=== PATIENT | female | born 1960 | race Caucasian/White ===

== ENCOUNTER 2022-03-05 16:31 | Inpatient (IN) | payer MEDICARE ==
[~2022-03-05] VITALS: Ht 160 cm; Wt 96.2 kg
[2022-03-05] VITALS (15 sets, daily range): BP systolic 104–162; BP diastolic 48–84
[2022-03-05] MEDS ORDERED: ALBUTEROL SUL0.083 % IN (17:14)
[2022-03-05] MEDS ORDERED: ALLOPURINOL100 MG PO (17:16)
[2022-03-05] MEDS ORDERED: ATORVASTATIN CA40 MG PO (17:17)
[2022-03-05] MEDS ORDERED: ASPIRIN81 MG PO (17:17)
[2022-03-05] MEDS ORDERED: NORVASC2.5 M1 PO (17:17)
[2022-03-05] MEDS ORDERED: ROCALTROL0.5 MC1 PO (17:18)
[2022-03-05] MEDS ORDERED: CALCIUM ANTACI500 MG PO (17:19)
[2022-03-05] MEDS ORDERED: CYMBALTA20 MG PO (17:20)
[2022-03-05] MEDS ORDERED: ELIQUIS2.5 MG PO (17:21)
[2022-03-05] MEDS ORDERED: FERROUS SULF325 M3 PO (17:23)
[2022-03-05] MEDS ORDERED: GABAPENTIN100 MG PO (17:24)
[2022-03-05] MEDS ORDERED: IPRATROPIU0.5 MG/3 M IN (17:25)
[2022-03-05] MEDS ORDERED: LEVOTHYROXIN150 MCG PO (17:26)
[2022-03-05] MEDS ORDERED: METOPROL TAR25 MG PO (17:27)
[2022-03-05] MEDS ORDERED: MACROBID100 M1 PO (17:27)
[2022-03-05] MEDS ORDERED: NALOXONE (17:28)
[2022-03-05] MEDS ORDERED: PERCOCET1 TA4 PO (17:29)
[2022-03-05] MEDS ORDERED: PROTONIX40 M2 PO (17:30)
[2022-03-05 17:38] LABS: BASO% 0.2 % (0-3); EOS% 1.4 % (0-8); HEMATOCRIT 20.1 % (37.0-47.0); IMMATURE GRANULOCYTES 0.4 % (0.0-5.0); LYMPH% 10.5 % (15-41); MEAN CELL VOLUME 86.6 fL CALC (80.0-100.0); MEAN CORPUSCULAR HGB 25.9 pG CALC (26.0-32.0); MEAN CORPUSCULAR HGB CONC 29.9 g/dL CAL (32.0-36.0); MONO% 7.9 % (2-13); NEUT# 9.37 thou/uL (2.00-7.15); NEUT% 79.6 % (42-76); RED BLOOD COUNT 2.32 mill/uL (4.20-5.60); RED CELL DISTRI WIDTH 18.1 % (11.5-15.5)
[2022-03-05 17:53] LABS: ALBUMIN 3.7 g/dL (3.2-5.0); ALKALINE PHOSPHATASE 89 u/l (38-126); ANION GAP 9 (6-22 (CALC)); BILIRUBIN, TOTAL 0.4 mg/dL (0.0-1.4); BUN 19 mg/dL (8-23); BUN/CREATININE RATIO 14 (12-20 (CALC)); CARBON DIOXIDE 31 mmol/l (22-30); CHLORIDE 104 mmol/l (95-108); CREATININE 1.3 mg/dL (0.5-1.0); GFR FOR AFR.AMER. 50 ML/MIN (>=60 (CALC)); GFR OTHER RACES 42 ML/MIN (>=60 (CALC)); MAGNESIUM 1.3 mg/dL (1.6-2.3); POTASSIUM 3.3 mmol/l (3.5-5.1); SGOT/AST 18 u/l (9-36); SODIUM 140 mmol/l (137-146); TOTAL PROTEIN 6.4 g/dL (6.3-8.2)
[2022-03-06] VITALS (14 sets, daily range): BP systolic 146–205; BP diastolic 60–85
[2022-03-06 09:31] LABS: BASO% 0.1 % (0-3); EOS% 0.1 % (0-8); IMMATURE GRANULOCYTES 1.4 % (0.0-5.0); LYMPH% 3.9 % (15-41); MEAN CELL VOLUME 84.8 fL CALC (80.0-100.0); MEAN CORPUSCULAR HGB 26.7 pG CALC (26.0-32.0); MEAN CORPUSCULAR HGB CONC 31.5 g/dL CAL (32.0-36.0); MONO% 0.6 % (2-13); NEUT# 12.42 thou/uL (2.00-7.15); NEUT% 93.9 % (42-76); RED BLOOD COUNT 3.89 mill/uL (4.20-5.60); RED CELL DISTRI WIDTH 17.5 % (11.5-15.5)
[2022-03-06 09:39] LABS: HEMOGLOBIN 10.4 g/dl (12.0-16.0)
[2022-03-06 09:52] LABS: ALBUMIN 4.3 g/dL (3.2-5.0); CREATININE 1.2 mg/dL (0.5-1.0); MAGNESIUM 1.2 mg/dL (1.6-2.3); POTASSIUM 3.3 mmol/l (3.5-5.1); TOTAL PROTEIN 7.2 g/dL (6.3-8.2)
[2022-03-06 09:57] LABS: BILIRUBIN, TOTAL 0.6 mg/dL (0.0-1.4)
[2022-03-07 00:05] VITALS: BP 174/85
[2022-03-07 05:26] LABS: BASO% 0.1 % (0-3); HEMATOCRIT 31.7 % (37.0-47.0); HEMOGLOBIN 9.7 g/dl (12.0-16.0); IMMATURE GRANULOCYTES 1.3 % (0.0-5.0); LYMPH% 4.3 % (15-41); MEAN CELL VOLUME 87.1 fL CALC (80.0-100.0); MEAN CORPUSCULAR HGB 26.6 pG CALC (26.0-32.0); MEAN CORPUSCULAR HGB CONC 30.6 g/dL CAL (32.0-36.0); MONO% 2.4 % (2-13); NEUT# 10.19 thou/uL (2.00-7.15); NEUT% 91.9 % (42-76); RED BLOOD COUNT 3.64 mill/uL (4.20-5.60); RED CELL DISTRI WIDTH 18.3 % (11.5-15.5)
[2022-03-07 05:44] LABS: ALBUMIN 4.1 g/dL (3.2-5.0); BILIRUBIN, TOTAL 0.4 mg/dL (0.0-1.4); CREATININE 1.2 mg/dL (0.5-1.0); POTASSIUM 3.2 mmol/l (3.5-5.1); TOTAL PROTEIN 7.2 g/dL (6.3-8.2)
[2022-03-07 05:57] LABS: MAGNESIUM 1.9 mg/dL (1.6-2.3)
[2022-03-07 11:37] VITALS: BP 199/89
[2022-03-07 16:00] VITALS: BP 157/110
[2022-03-07 18:42] VITALS: BP 151/61
[2022-03-08] VITALS (11 sets, daily range): BP systolic 154–182; BP diastolic 55–84
[2022-03-08 04:37] LABS: BASO% 0.1 % (0-3); HEMATOCRIT 33.4 % (37.0-47.0); IMMATURE GRANULOCYTES 1.9 % (0.0-5.0); LYMPH% 3.9 % (15-41); MEAN CELL VOLUME 89.1 fL CALC (80.0-100.0); MEAN CORPUSCULAR HGB 26.7 pG CALC (26.0-32.0); MEAN CORPUSCULAR HGB CONC 29.9 g/dL CAL (32.0-36.0); MONO% 2.6 % (2-13); NEUT# 12.06 thou/uL (2.00-7.15); NEUT% 91.5 % (42-76); RED BLOOD COUNT 3.75 mill/uL (4.20-5.60); RED CELL DISTRI WIDTH 18.3 % (11.5-15.5)
[2022-03-08 04:55] LABS: ALBUMIN 4.1 g/dL (3.2-5.0); ALKALINE PHOSPHATASE 99 u/l (38-126); BILIRUBIN, TOTAL 0.4 mg/dL (0.0-1.4); BUN 34 mg/dL (8-23); BUN/CREATININE RATIO 30 (12-20 (CALC)); CARBON DIOXIDE 34 mmol/l (22-30); CHLORIDE 107 mmol/l (95-108); CREATININE 1.1 mg/dL (0.5-1.0); GFR FOR AFR.AMER. > 60 ML/MIN (>=60 (CALC)); GFR OTHER RACES 50 ML/MIN (>=60 (CALC)); POTASSIUM 3.4 mmol/l (3.5-5.1); SGOT/AST 36 u/l (9-36); TOTAL PROTEIN 7.1 g/dL (6.3-8.2)
[2022-03-08 04:58] LABS: ANION GAP 9 (6-22 (CALC)); SODIUM 147 mmol/l (137-146)
[2022-03-08] MEDS ORDERED: TOPROL XL50 MG PO (10:04)
[2022-03-09] VITALS (10 sets, daily range): BP systolic 145–196; BP diastolic 53–86
[2022-03-09 06:05] LABS: BASO% 0.1 % (0-3); HEMATOCRIT 33.1 % (37.0-47.0); HEMOGLOBIN 9.9 g/dl (12.0-16.0); IMMATURE GRANULOCYTES 1.6 % (0.0-5.0); MEAN CELL VOLUME 90.2 fL CALC (80.0-100.0); MEAN CORPUSCULAR HGB CONC 29.9 g/dL CAL (32.0-36.0); MONO% 2.6 % (2-13); NEUT# 8.58 thou/uL (2.00-7.15); NEUT% 91.7 % (42-76); RED BLOOD COUNT 3.67 mill/uL (4.20-5.60); RED CELL DISTRI WIDTH 18.5 % (11.5-15.5)
[2022-03-09 06:26] LABS: ALKALINE PHOSPHATASE 80 u/l (38-126); ANION GAP 9 (6-22 (CALC)); BILIRUBIN, TOTAL 0.4 mg/dL (0.0-1.4); BUN 32 mg/dL (8-23); BUN/CREATININE RATIO 31 (12-20 (CALC)); CARBON DIOXIDE 36 mmol/l (22-30); CHLORIDE 106 mmol/l (95-108); CREATININE 1.1 mg/dL (0.5-1.0); GFR FOR AFR.AMER. > 60 ML/MIN (>=60 (CALC)); GFR OTHER RACES 50 ML/MIN (>=60 (CALC)); MAGNESIUM 1.6 mg/dL (1.6-2.3); POTASSIUM 3.1 mmol/l (3.5-5.1); SGOT/AST 29 u/l (9-36); SODIUM 149 mmol/l (137-146); TOTAL PROTEIN 6.8 g/dL (6.3-8.2)
[2022-03-09 13:06] LABS: URINE BILIRUBIN - DIPSTICK NEGATIVE (NEGATIVE); URINE BLOOD DIPSTICK SMALL (NEGATIVE); URINE COLOR YELLOW; URINE GLUCOSE - DIPSTICK NEGATIVE (NEGATIVE); URINE KETONE NEGATIVE (NEGATIVE); URINE LEUK ESTERASE NEGATIVE (NEGATIVE); URINE PH 6.5 (4.5-8.0); URINE PROTEIN - DIPSTICK NEGATIVE (NEG-TRACE); URINE SPECIFIC GRAVITY 1.015; URINE UROBILINOGEN - DIPSTICK 0.2 E.U./dL (0.2)
[2022-03-09 13:14] LABS: URINE NITRITE - DIPSTICK NEGATIVE (Negative)
[2022-03-09 13:15] LABS: URINE EPITHELIAL CELLS RARE EPI/hpf (0-FEW)
[2022-03-10] VITALS (11 sets, daily range): BP systolic 147–192; BP diastolic 63–79
[2022-03-10 05:50] LABS: BASO% 0.1 % (0-3); HEMATOCRIT 36.3 % (37.0-47.0); HEMOGLOBIN 10.2 g/dl (12.0-16.0); IMMATURE GRANULOCYTES 2.3 % (0.0-5.0); LYMPH% 3.9 % (15-41); MEAN CELL VOLUME 90.1 fL CALC (80.0-100.0); MEAN CORPUSCULAR HGB 25.3 pG CALC (26.0-32.0); MEAN CORPUSCULAR HGB CONC 28.1 g/dL CAL (32.0-36.0); NEUT# 9.8 thou/uL (2.00-7.15); NEUT% 90.7 % (42-76); RED BLOOD COUNT 4.03 mill/uL (4.20-5.60); RED CELL DISTRI WIDTH 18.6 % (11.5-15.5)
[2022-03-10 06:17] LABS: ALBUMIN 4.1 g/dL (3.2-5.0); ALKALINE PHOSPHATASE 78 u/l (38-126); ANION GAP 11 (6-22 (CALC)); BILIRUBIN, TOTAL 0.5 mg/dL (0.0-1.4); BUN 35 mg/dL (8-23); BUN/CREATININE RATIO 32 (12-20 (CALC)); CARBON DIOXIDE 33 mmol/l (22-30); CHLORIDE 108 mmol/l (95-108); CREATININE 1.1 mg/dL (0.5-1.0); GFR FOR AFR.AMER. > 60 ML/MIN (>=60 (CALC)); GFR OTHER RACES 50 ML/MIN (>=60 (CALC)); POTASSIUM 3.1 mmol/l (3.5-5.1); SODIUM 149 mmol/l (137-146); TOTAL PROTEIN 6.5 g/dL (6.3-8.2)
[2022-03-10 06:31] LABS: SGOT/AST 55 u/l (9-36)
[2022-03-11] VITALS (12 sets, daily range): BP systolic 132–184; BP diastolic 54–77
[2022-03-11 05:28] LABS: HEMATOCRIT 37.8 % (37.0-47.0); HEMOGLOBIN 11.3 g/dl (12.0-16.0); IMMATURE GRANULOCYTES 2.7 % (0.0-5.0); LYMPH% 2.5 % (15-41); MEAN CELL VOLUME 89.6 fL CALC (80.0-100.0); MEAN CORPUSCULAR HGB 26.8 pG CALC (26.0-32.0); MEAN CORPUSCULAR HGB CONC 29.9 g/dL CAL (32.0-36.0); MONO% 3.2 % (2-13); NEUT# 12.1 thou/uL (2.00-7.15); NEUT% 91.6 % (42-76); RED BLOOD COUNT 4.22 mill/uL (4.20-5.60); RED CELL DISTRI WIDTH 18.7 % (11.5-15.5)
[2022-03-11 07:12] LABS: ALBUMIN 4.1 g/dL (3.2-5.0); ALKALINE PHOSPHATASE 76 u/l (38-126); ANION GAP 10 (6-22 (CALC)); BILIRUBIN, TOTAL 0.6 mg/dL (0.0-1.4); BUN 38 mg/dL (8-23); BUN/CREATININE RATIO 36 (12-20 (CALC)); CARBON DIOXIDE 35 mmol/l (22-30); CHLORIDE 102 mmol/l (95-108); GFR FOR AFR.AMER. > 60 ML/MIN (>=60 (CALC)); GFR OTHER RACES 56 ML/MIN (>=60 (CALC)); MAGNESIUM 1.7 mg/dL (1.6-2.3); POTASSIUM 2.9 mmol/l (3.5-5.1); SGOT/AST 65 u/l (9-36); SODIUM 144 mmol/l (137-146); TOTAL PROTEIN 6.3 g/dL (6.3-8.2)
[2022-03-12] VITALS (7 sets, daily range): BP systolic 151–177; BP diastolic 57–77
[2022-03-12 05:24] LABS: BASO% 0.1 % (0-3); HEMOGLOBIN 11.6 g/dl (12.0-16.0); IMMATURE GRANULOCYTES 1.8 % (0.0-5.0); LYMPH% 1.7 % (15-41); MEAN CELL VOLUME 88.2 fL CALC (80.0-100.0); MEAN CORPUSCULAR HGB 26.9 pG CALC (26.0-32.0); MEAN CORPUSCULAR HGB CONC 30.5 g/dL CAL (32.0-36.0); MONO% 2.1 % (2-13); NEUT% 94.3 % (42-76); RED BLOOD COUNT 4.31 mill/uL (4.20-5.60); RED CELL DISTRI WIDTH 17.9 % (11.5-15.5)
[2022-03-12 05:35] LABS: ALBUMIN 3.5 g/dL (3.2-5.0); CREATININE 1.2 mg/dL (0.5-1.0); TOTAL PROTEIN 5.6 g/dL (6.3-8.2)
[2022-03-12 05:49] LABS: BILIRUBIN, TOTAL 0.3 mg/dL (0.0-1.4); POTASSIUM 3.5 mmol/l (3.5-5.1)
[2022-03-13 00:26] VITALS: BP 157/69
[2022-03-13 04:37] VITALS: BP 159/76
[2022-03-13 06:28] VITALS: BP 159/76
[2022-03-13 06:47] LABS: ALBUMIN 3.4 g/dL (3.2-5.0); BUN 52 mg/dL (8-23); CARBON DIOXIDE 35 mmol/l (22-30); CHLORIDE 99 mmol/l (95-108); CREATININE 1.1 mg/dL (0.5-1.0); GFR FOR AFR.AMER. > 60 ML/MIN (>=60 (CALC)); GFR OTHER RACES 50 ML/MIN (>=60 (CALC)); MAGNESIUM 1.8 mg/dL (1.6-2.3); POTASSIUM 3.6 mmol/l (3.5-5.1); SODIUM 139 mmol/l (137-146)
[2022-03-13 08:44] VITALS: BP 155/65
[2022-03-13 09:37] LABS: HEMATOCRIT 39.8 % (37.0-47.0); HEMOGLOBIN 12.1 g/dl (12.0-16.0); MEAN CELL VOLUME 87.3 fL CALC (80.0-100.0); MEAN CORPUSCULAR HGB 26.5 pG CALC (26.0-32.0); MEAN CORPUSCULAR HGB CONC 30.4 g/dL CAL (32.0-36.0); RED BLOOD COUNT 4.56 mill/uL (4.20-5.60); RED CELL DISTRI WIDTH 17.3 % (11.5-15.5)
[2022-03-13 10:48] VITALS: BP 155/65
[2022-03-13] MEDS ORDERED: AMLODIPINE BESYL5 MG PO (11:41)
[2022-03-13] MEDS ORDERED: MEDDOSEPAK PO (11:41)
[2022-03-13] MEDS ORDERED: HYDRALAZINE HCL50 MG PO (11:41)
[2022-03-13] MEDS ORDERED: LASIX20 MG PO (11:41)
[2022-03-13] MEDS ORDERED: K-TABS10 MEQ PO (11:42)
== END 2022-03-13 15:22 | disposition home health service (06) | DRG 291 ==
LOC: ED 16:31 → ED-I 18:00 → MS2 18:31 → ED 18:31 → MS2 03-13 15:22
PROVIDERS: Family Medicine; Internal Medicine; Internal Medicine Nephrology; Nurse Practitioner Family; ADMIT Internal Medicine; ATTEND Internal Medicine
PROC: 30233N1 Transfusion of Nonautologous Red Blood Cells into Peripheral Vein, Percutaneous Approach (ICD-10-PCS; principal; 2022-03-05)
PROC: 30233N1 Transfusion of Nonautologous Red Blood Cells into Peripheral Vein, Percutaneous Approach (ICD-10-PCS; 2022-03-06)
DX: I13.0 Hypertensive heart and chronic kidney disease with heart failure and stage 1 through stage 4 chronic kidney disease, or unspecified chronic kidney disease (principal); G93.41 Metabolic encephalopathy; I50.33 Acute on chronic diastolic (congestive) heart failure; J18.9 Pneumonia, unspecified organism; J96.01 Acute respiratory failure with hypoxia; J44.1 Chronic obstructive pulmonary disease with (acute) exacerbation; N17.9 Acute kidney failure, unspecified; J44.0 Chronic obstructive pulmonary disease with (acute) lower respiratory infection; N18.30 Chronic kidney disease, stage 3 unspecified; D63.1 Anemia in chronic kidney disease; E86.9 Volume depletion, unspecified; I73.9 Peripheral vascular disease, unspecified; E66.9 Obesity, unspecified; M10.9 Gout, unspecified; E89.0 Postprocedural hypothyroidism; Z89.612 Acquired absence of left leg above knee; Z79.891 Long term (current) use of opiate analgesic; Z20.822 Contact with and (suspected) exposure to COVID-19; Z79.01 Long term (current) use of anticoagulants; Z87.891 Personal history of nicotine dependence
CPT/HCPCS: J3475; P9016